=== PATIENT | female | born 1960 | race Two or more races ===

== ENCOUNTER 2025-04-30 17:51 | Emergency (ER) | payer OTHER ==
[~2025-04-30] VITALS: Ht 165.1 cm; Wt 65.0 kg
[2025-04-30 17:59] VITALS: BP 140/100; PULSE 80; RESP 24; TEMP 98.9; O2SAT 100
--- NOTE | 2025-04-30 18:55 | ED.PDOC ---
Will. trauma (HPI) HPI Comments This is a 65-year-old female presents to the ED ambulance status post fall. Patient states she was at [employer] and had an anxiety attack which caused her to slip and fall she notes fell on her left side of her body. Reports left wrist pain left shoulder pain left rib pain. Seven hundred ten on pain scale describes as pressure sharp in nature nonradiating type pain has not taken any medications [id number] ambulance did not give her any medications for pain control. She also states chronic history of continuous muscle spasms currently having spasms at the moment she takes Flexeril at home she does not usually take it during the day has a makes her sleepy. She denies head trauma, LOC, neck pain, back pain, dizziness, chest pain, difficulty breathing, shortness of breath. Chief Complaint: Anxiety Time Seen by MD: 18:33 Reviewed notes: Nurses Notes, Medications, Allergies Allergies: Coded Allergies: Sulfa Antibiotics (Verified Allergy, Unknown, 04/30/25) Information Source: Patient Mode of Arrival: EMS Constitutional: denies: chills, diaphoresis, fatigue, fever, malaise, sweats, weakness, others EENTM: denies: blurred vision, double vision, ear bleeding, ear discharge, ear drainage, ear pain, ear ringing, eye pain, eye redness, hearing loss, mouth pain, mouth swelling, nasal discharge, nose bleeding, nose congestion, nose pain, photophobia, tearing, throat pain, throat swelling, voice changes, others Respiratory: denies: cough, hemoptysis, orthopnea, SOB at rest, shortness of breath, SOB with excertion, stridor, wheezing, others Cardiovascular: denies: chest pain, dizzy spells, diaphoresis, Dyspnea on exertion, edema, irregular heart beat, left arm pain, lightheadedness, palpitations, PND, syncope, others Gastrointestinal: denies: abdomen distended, abdominal pain, blood streaked bowels, constipated, diarrhea, dysphagia, difficulty swallowing, hematemesis, melena, nausea, poor appetite, poor fluid intake, rectal bleeding, rectal pain, vomiting, others Genitourinary: denies: abnormal vagina bleeding, burning, dyspareunia, dysuria, flank pain, frequency, hematuria, incontinence, pain, , vagina discharge, urgency, others Neurological: denies: dizziness, fainting, headache, left sided numbness, left sided weakness, numbness, paresthesia, pre-existing deficit, right sided numbness, right sided weakness, seizure, speech problems, tingling, tremors, weakness, others Musculoskeletal: reports: joint pain, joint swelling, others (Left ribs, left wrist, left shoulder pain); denies: back pain, gout, muscle pain, muscle stiffness, neck pain Integumetry: denies: bruises, change in color, change in hair/nails, dryness, laceration, lesions, lumps, rash, wounds, others Allergic/Immunocompromised: denies: Difficulty Healing, Frequent Infections, Hives, Itching, others Hematologic/Lymphatic: denies: anemia, blood clots, easy bleeding, easy bruising, swollen glands, others Endocrine: denies: excessive hunger, excessive sweating, excessive thirst, excessive urination, flushing, intolerance to cold, intolerance to heat, unexplained weight gain, unexplained weight loss, others Psychiatric: denies: anxiety, bipolar disorder, depression, hopeless, panic disorder, schizophrenia, sleepless, suicidal, others Physical Exam General Appearance: No Apparent Distress, Normal HEENT: Pharynx Normal Neck: Full Range of Motion, Non-Tender Respiratory: Lungs Clear, No Respiratory Distress, Normal Breath Sounds Cardiovascular: No Edema, No JVD, No Murmur, No Gallop, Normal Peripheral Pulses, Regular Rate/Rhythm Breast Exam: Deferred Gastrointestinal: No Organomegaly, Non Tender, No Pulsatile Mass, Normal Bowel Sounds, Soft Genitalia: Deferred Pelvic: Deferred Rectal: Deferred Extremities: Normal capillary refill, Normal inspection, Normal range of motion, Non-tender, No pedal edema Musculoskeletal : Location: Left Extremity Location: Shoulder (Mild tenderness palpated over anterior shoulder girdle strength sensory motion intact), Wrist (Tenderness on palpation trace edema posterior wrist trace ecchymosis strength sensory motion intact) Apperance: Normal Neurologic: Alert, No Motor Deficits, Normal Affect, Normal Mood, No Sensory Deficits Cerebellar Function: Normal Reflexes: Normal Skin: Dry, Normal Color, Warm Lymphatic: No Adenopathy Was a procedure done? Was a procedure done?: No Differential Diagnosis Multiple Trauma: Fractures, Abrasions, Contusion X-Ray, Labs, Meds, VS Vital Signs Date Time Temp Pulse Resp B/P (MAP) Pulse Ox O2 Delivery O2 Flow Rate FiO2 04/30/25 17:59 98.9 80 24 140/100 (113) 100 98.9 X-Ray, Labs, Meds, VS Comment X-ray show no acute fractures, osseous lesions, or subluxations or dislocations. Likely strain status post fall. Script trial of diclofenac advised take medications as prescribed side effects discussed. Patient refused Ativan state she will take her Flexeril when she gets home for her muscle spasms. Advised on rice. Advised to follow up with her PCP in 2 days consider further imaging such as MRI if symptoms persist. ER return precautions given patient indicates understanding agrees with discharge plan of care Time of 1ST Reevaluation: 18:30 Reevaluation 1ST: Unchanged Time of 2ND Reevaluation: 19:47 Reevaluation 2ND: Improved Patient Education/Counseling: Diagnosis, Treatment, Prognosis, Need For Follow Up Family Education/Counseling: Diagnosis, Treatment, Prognosis, Need For Follow Up Departure 1 Departure Time of Disposition: 19:47 Impression: Primary Impression: Contusion of left wrist, initial encounter Additional Impressions: Strain of left shoulder Qualified Codes: S46.912A - Strain of unspecified muscle, fascia and tendon at shoulder and upper arm level, left arm, initial encounter Contusion of rib on left side Qualified Codes: S20.212A - Contusion of left front wall of thorax, initial encounter Disposition: HOME / SELF CARE / HOMELESS Condition: Stable e-Prescriptions Diclofenac Sodium (Diclofenac Sodium Ec) 50 Mg Tab 1 TAB PO BID PRN for 5 Days, #10 TAB Prov: DONNELL REINOSO 04/30/25 Discharged With: Spouse Critical Care Note Critical Care Time?: No Stability Stability form required: DONNELL Pillai Apr 30, 2025 18:55
[2025-04-30] MEDS ORDERED: LORazepam 0.5 MG TAB PO ONE (19:00)
--- NOTE | 2025-04-30 19:34 | DVH ---
CLINICAL INDICATION: S/P FALL TRAUMA TECHNIQUE: 3 radiographic views of the left shoulder were obtained. Comparison: None FINDINGS/IMPRESSION: There is no evidence of acute fracture or dislocation. The visualized joint space is well maintained. The alignment is anatomical. There is no radiopaque foreign body.
--- NOTE | 2025-04-30 19:35 | DVH ---
CHEST RADIOGRAPH Indication: S/P FALL TRAUMA Technique: Single frontal view of the chest with 2 views of the left ribs available for evaluation. Comparison: None FINDINGS: Lines and Tubes: None Lungs: No focal consolidation. Pleura: No effusion. No pneumothorax. Cardiomediastinal contours: Unremarkable Bones: No acute osseous abnormality. IMPRESSION: No acute cardiopulmonary disease.No acute rib Fractures.
--- NOTE | 2025-04-30 19:36 | DVH ---
CLINICAL INDICATION: S/P FALL TRAUMA TECHNIQUE: 3 radiographic views of the left wrist were obtained. Comparison: None FINDINGS/IMPRESSION: There is no evidence of acute fracture or dislocation. The visualized joint space is well maintained. The alignment is anatomical. There is no radiopaque foreign body.
[2025-04-30] MEDS ORDERED: DICL50TA4 PO (20:01)
== END 2025-04-30 20:57 | disposition home or self-care (01) ==
LOC: ER 17:51 → EDBD 17:51 → ER 20:57
DX: S46.912A Strain of unspecified muscle, fascia and tendon at shoulder and upper arm level, left arm, initial encounter (principal); S60.212A Contusion of left wrist, initial encounter; S20.212A Contusion of left front wall of thorax, initial encounter; F41.9 Anxiety disorder, unspecified; Z88.2 Allergy status to sulfonamides; W18.39XA Other fall on same level, initial encounter; Y93.89 Activity, other specified; Y92.89 Other specified places as the place of occurrence of the external cause; Y99.8 Other external cause status
CPT/HCPCS: 71101; 73030; 73110